=== PATIENT | female | born 1975 | race Caucasian/White ===

== ENCOUNTER 2017-02-21 09:44 | Emergency (ER) | payer BC ==
--- NOTE | 2017-02-28 17:48 | ER ---
ADMIT: 02/21/2017 RM/LOC: ER [facility] MR#: [id number] [address] [id number] NANCY ROBLEDO [address] [place] [address] Emergency Room Report SEX: F AGE: 41 : 1975 DATE: 02/21/2017 ADDENDUM: A 41-year-old white female coming in with what she says is down with tingling for at least the last seven days. Mainly on the right side also head. She says both sides of her face. There is no trauma to this. She does not have a whole lot of significant medical problems. She does have hypertension, but she is on medication for that. She has history of atrial fibrillation, so she has a pacemaker there. She is not anticoagulated. Also hyperlipidemia. At this time, CT scan, chest x-ray, lab chemistry are all negative. I did speak with Dr. Allen on the phone. We are going to discharge her. They will try to squeeze her in Thursday. She is to call bright and early Thursday morning. CONDITION ON DISCHARGE: Good. Low Monroe MD/ ophelia JOB #: [id number] CC: Low Monroe MD, Attending Physician UNKNOWN, Family Physician
== END 2017-02-21 12:51 | disposition home or self-care (01) ==
LOC: ER 09:44
DX: R20.9 Unspecified disturbances of skin sensation (principal); I10 Essential (primary) hypertension; E78.5 Hyperlipidemia, unspecified; Z95.0 Presence of cardiac pacemaker; Z98.890 Other specified postprocedural states; Z88.0 Allergy status to penicillin; Z79.899 Other long term (current) drug therapy